=== PATIENT | female | born 1955 ===

== ENCOUNTER 2024-02-25 13:11 | Emergency (ER) | payer SELFPAY ==
[2024-02-25 15:10] VITALS: BP 159/68; PULSE 75; RESP 20; TEMP 36.6; O2SAT 96; BMI 34.8
--- NOTE | 2024-02-25 15:18 | ED_ITS ---
HPI - General Adult General Chief complaint: General Medical Stated complaint: medication Time Seen by Provider: 02/25/24 20:25 Source: patient Limitations: no limitations and other (poor historian) History of Present Illness ED Provider: Dana rudolph PA-C HPI narrative: 69-year-old female we will self report of ?psychiatric illness?, and diabetes, request seeking medication refills. Patient just moved from [place], she requires her medications. She can not tell me what medication she is on, when asked who her prescribers are, she does not know their names. Related Data Allergies Allergy/AdvReac Type Severity Reaction Status Date / Time aspirin [ASA] AdvReac Gastrointestinal Verified 02/25/24 15:14 Upset Review of Systems Review of Systems: Yes all other systems are reviewed and are negative Constitutional: Constitutional: Denies chills, Denies fatigue and Denies fever(s) Cardiovascular: Cardiovascular: Denies chest pain and Denies dyspnea Respiratory: Respiratory: Denies cough and Denies dyspnea Gastrointestinal: Gastrointestinal: Denies diarrhea, Denies nausea and Denies vomiting Endocrine: Endocrine: Denies fatigue [facility] Past Medical History Attestation statement: The following information was validated with the patient. Social History Social History Advance Directives: No Advance Directives Information Provided: No Physical Exam ED Vital Signs: Vital Signs - 24 hr 02/25/24 15:10 02/25/24 21:20 Temperature 97.8 F 97.8 F Pulse Rate 75 75 Respiratory Rate 20 20 Blood Pressure 159/68 H 159/68 H Pulse Oximetry 96 96 Oxygen Delivery Method Room Air Room Air BMI result Body Mass Index 34.8 Const Other: Awake, well-appearing Orientation/consciousness: oriented to person and oriented to place Resp Other: Nonlabored respiration Cardio Other: Normal peripheral perfusion Skin Other: Warm dry no rash Neuro Other: Can not give me the exact date General: oriented to person and oriented to place Psych Other: Somewhat hostile Course Course Course Narrative: RME: 69-year-old female presents for coughing and medication refill. Patient recently moved from [place]. Family member only showed picture of pills with n o names or boxes. SARs ordered Medical Decision Making Medical Decision Making MDM Narrative: 69-year-old female we will self report of ?psychiatric illness?, and diabetes, request seeking medication refills. Patient just moved from [place], she requires her medications. She can not tell me what medication she is on, when asked who her prescribers are, she does not know their names. Problem: Diabetes and ?psychiatric illness? History: Per patient I have considered the following differential diagnoses: Needs med refill Plan: I expressed to the patient that if she can not tell me what medication she is on, I can not refill them. She asks, ?I can give you a phone number and you can call my doctor?, I relayed to the patient that if she has the phone number, then she could call herself. The patient's son is here with her, he apparently brought in a photograph of all the pills, without the names. This is of no value. They can reach out to her prescribers. Lab Data Labs: Lab Results 02/25/24 Range/Units 15:37 Influenza Type A (PCR) NEGATIVE (Negative) Influenza Type B (PCR) NEGATIVE (Negative) RSV RNA Qual (PCR) NEGATIVE (Negative) SARS-CoV-2 RNA (RT-PCR) NEGATIVE (Negative) S. pyogenes GrpA CHAPITO Negative (Negative) Discharge Plan Discharge Clinical Impression: Medication refill Patient Disposition: Home, Self-Care Interventions: LWBS Worksheet Last Done: 02/25/24 14:50 ED Discharge Assessment Last Done: 02/25/24 21:20 Discharge Date/Time: 02/25/24 21:21 Print Language: Indonesian
[2024-02-25 15:58] LABS: IDNOW Serial# 08D9AD1C; Strep A Nucleic Acid Negative (Negative)
[2024-02-25 16:26] LABS: Influenza A PCR NEGATIVE (Negative); Influenza B PCR NEGATIVE (Negative); Resp Syncy Virus RNA Qual PCR NEGATIVE (Negative); SARS COV2 PCR INHOUSE NEGATIVE (Negative)
[2024-02-25 21:20] VITALS: BP 159/68; PULSE 75; RESP 20; TEMP 36.6; O2SAT 96
== END 2024-02-25 21:21 | disposition home or self-care (01) ==
PROVIDERS: Physician Assistant; Emergency Provider Emergency Medicine
DX: E11.8 Type 2 diabetes mellitus with unspecified complications (principal); F99 Mental disorder, not otherwise specified; Z03.818 Encounter for observation for suspected exposure to other biological agents ruled out
CPT/HCPCS: 0241U; 87651; 99282; 99283

== ENCOUNTER 2024-02-29 04:09 | Emergency (ER) | payer MEDICARE, SELFPAY ==
--- NOTE | 2024-02-29 | ECG_ITS ---
Test Reason : CEPEDAJ Blood Pressure : / mmHG Vent. Rate : 093 BPM Atrial Rate : 093 BPM P-R Int : 154 ms QRS Dur : 088 ms QT Int : 394 ms P-R-T Axes : 044 014 039 degrees QTc Int : 489 ms Normal sinus rhythm Normal ECG No previous ECGs available Referred By: Generic ED Physician Electronically Signed By:ALONDRA CRISTINA MD
[2024-02-29 04:16] VITALS: BP 178/79; PULSE 94; RESP 17; TEMP 35.9; O2SAT 100; BMI 36.0
[2024-02-29 04:33] LABS: Basophils Percent Auto 0.4 % (0-2); Eosinophils Absolute Auto 0.2 X10*3/uL (0.0-0.4); Eosinophils Percent Auto 2.6 % (0-4); Hematocrit 37.7 % (37.0-47.0); Hemoglobin 12.4 g/dl (12.0-16.0); Imm Gran Abs Auto 0.02 X10*3/uL (0.00-0.03); Imm Gran Pct Auto 0.2 % (0.0-0.4); Lymphocytes Percent Auto 36.4 % (20-40); MANUAL DIFF FLAG NO; Mean Corpuscular HGB Conc 32.9 g/dl (31.0-35.0); Mean Corpuscular Hemoglobin 27.2 pg (27.0-33.0); Mean Corpuscular Volume 82.7 fL (80.0-98.0); Mean Platelet Volume 9.2 fL (9.4-12.3); Monocytes Absolute Auto 0.8 X10*3/uL (0.1-1.2); Monocytes Percent Auto 9.1 % (2-11); Neutrophils Absolute Auto 4.2 x10*3/uL (2.0-8.3); Neutrophils Percent Auto 51.3 % (45-73); Platelet Count 218 X10*3/uL (160-400); Red Blood Count 4.56 X10*6/uL (4.20-5.50); Red Cell Distribution Width 14.1 % (11.0-16.0); White Blood Count 8.2 X10*3/uL (4.8-10.8)
[2024-02-29 04:49] LABS: Alanine Aminotransferase 24 U/L (0-31); Albumin Level 4.2 g/dL (3.5-5.0); Alkaline Phosphatase 49 U/L (39-117); Anion Gap 17 (12-20); Aspartate Amino Transferase 37 U/L (5-31); Bilirubin Total 0.4 mg/dL (0.0-1.0); Blood Urea Nitrogen 19 mg/dL (9-16); Calcium 9.2 mg/dL (8.4-10.2); Carbon Dioxide 24 mmol/L (22-29); Chloride 106 mmol/L (96-108); Creatinine Clr Calc Pharmacy 70.8; Estimated Glomerular Filt Rate > 60; Glucose Random 107 mg/dL (60-115); Potassium 3.5 mmol/L (3.3-5.1); Sodium 143 mmol/L (135-145); Total Protein 7.7 g/dL (6.5-8.0)
--- NOTE | 2024-02-29 05:52 | ED.GENADULT ---
HPI - General Adult General Chief complaint: General Medical Stated complaint: nosebleed Time Seen by Provider: 02/29/24 05:03 Source: patient and family (Son) Mode of arrival: ambulatory Limitations: no limitations History of Present Illness ED Provider: DR. Galloway HPI narrative: 69-year-old female came in for evaluation after she woke up with nose bleed, patient just moved from [facility] has no PCP currently, woke up this morning with a nosebleed, otherwise no headache, no blurry vision, patient is not taking anticoagulation medication, patient in the process of looking for PCP. Initially patient had severe nosebleed mostly from the right side, after 15 minute of externa nose pinching was applied the bleeding stopped. Patient now is requesting to be evaluated for rehab placement. Related Data Allergies Allergy/AdvReac Type Severity Reaction Status Date / Time aspirin [ASA] AdvReac Gastrointestinal Verified 02/29/24 04:19 Upset Review of Systems Review of Systems: All other systems are reviewed and are negative Constitutional: Reports as per HPI and Reports no additional constitutional complaints Eyes: Reports as per HPI and Reports no additional eye complaints Reports system reviewed and no additional complaints, except as documented Cardiovascular: Reports as per HPI and Reports no additional cardiovascular complaints Respiratory: Reports as per HPI and Reports no additional respiratory complaints Gastrointestinal: Reports as per HPI and Reports no additional gastrointestinal complaints Genitourinary: Reports no additional female genitourinary complaints Musculoskeletal: Reports no additional musculoskeletal complaints Skin/Breast: Reports system reviewed and no additional complaints, except as docu Psychiatric: Reports no additional psychiatric complaints Endocrine: Reports no additional endocrine complaints Hematologic/Lymphatic: Reports no additional hematologic/lymphatic complaints Allergic/Immunologic: Reports no additional allergic/immunologic complaints Reports system reviewed and no additional complaints, except as documented and Reports Abnormal speech present [facility] Social History Social History Advance Directives: No Advance Directives Information Provided: Yes Do you have a plan to hurt others: No Plan Physical Exam ED Vital Signs: Vital Signs - 24 hr 02/29/24 04:16 Temperature 96.6 F L Pulse Rate 94 Respiratory Rate 17 Blood Pressure 178/79 H Pulse Oximetry 100 Oxygen Delivery Method Room Air BMI result Body Mass Index 36.0 Vital signs have been reviewed and appear to be correct. Blood pressure elevated. Heart rate normal. Respiratory rate normal. Temperature normal. Oxygen saturation normal. Appearance: Alert. Oriented X3. No acute distress. Head: Normal external exam. Normocephalic. Atraumatic. No Lucio signs noted. No raccoon eyes noted Eyes: PERRLA. EOMI. Conjunctiva and sclera normal. Eyelids normal. ENT: TM's Normal. Pharynx normal. Uvula midline. Moist mucous membranes. No active bleeding after applying pressure. No trismus noted. No drooling noted. No muffled voice noted. Neck: Normal inspection. Neck supple. FROM. No adenopathy. Thyroid Normal. No meningeal signs. No neck mass noted. CVS: Normal heart rate and rhythm. Heart sound normal. No murmurs noted. Pulses normal throughout. Respiratory: No respiratory distress. Painless inspiration. Breath sounds normal. No wheezes/rales/rhonchi noted. Chest nontender. No accessory muscle usage noted or decreased air movement noted. Abdomen: Soft and nontender. Bowel sounds normal in all 4 quadrants. No distention noted. No organomegaly noted. No visible injury noted. Back: No CVA tenderness. Full range of motion noted. Skin: Skin warm and dry. Normal skin color. Normal skin turgor. No rashes/lesions/lacerations noted. Extremities: No lower extremity edema. Extremities exhibit normal range of motion. Extremities nontender. Neuro: Oriented X 3. Cranial nerve exam: II-XII are grossly intact No motor deficit. No sensory deficit. Reflexes normal. Course Reevaluation(s) Reevaluation #1: Nose bleeding stopped after external nasal pressure otherwise stable labs, will start physician observation as per patient request asking for physical rehabilitation placement. Time: 05:56 Medical Decision Making Differential Diagnosis Differential Diagnoses: The differential diagnosis associated with the presentation includes (Severe anemia, thrombocytopenia, electrolyte derangement, anterior epistaxis, posterior epistaxis.) Admission/Observation Consideration of admission/observation: Escalation of care including admission/observation considered Lab Data MDM Lab Attestation statement: I reviewed the patient's lab results. 02/29/24 04:28 02/29/24 04:28 Labs: Lab Results 02/29/24 Range/Units 04:28 WBC 8.2 (4.8-10.8) X10*3/uL RBC 4.56 (4.20-5.50) X10*6/uL Hgb 12.4 (12.0-16.0) g/dl Hct 37.7 (37.0-47.0) % MCV 82.7 (80.0-98.0) fL MCH 27.2 (27.0-33.0) pg MCHC 32.9 (31.0-35.0) g/dl RDW 14.1 (11.0-16.0) % Plt Count 218 (160-400) X10*3/uL MPV 9.2 L (9.4-12.3) fL Immature Gran % (Auto) 0.2 (0.0-0.4) % Neut % (Auto) 51.3 (45-73) % Lymph % (Auto) 36.4 (20-40) % Hoke % (Auto) 9.1 (2-11) % Eos % (Auto) 2.6 (0-4) % Baso % (Auto) 0.4 (0-2) % Lymph # (Auto) 3.0 (1.2-4.9) X10*3/uL Hoke # (Auto) 0.8 (0.1-1.2) X10*3/uL Eos # (Auto) 0.2 (0.0-0.4) X10*3/uL Baso # (Auto) 0.0 (0.0-0.2) X10*3/uL Abs Immat Gran (auto) 0.02 (0.00-0.03) X10*3/uL Absolute Neuts (auto) 4.2 (2.0-8.3) x10*3/uL Absolute Nucleated RBC 0.000 (0.0-0.012) X10*3/uL Nucleated RBC % (auto) 0.0 (0.0-0.2) /100WBC Sodium 143 (135-145) mmol/L Potassium 3.5 (3.3-5.1) mmol/L Chloride 106 (96-108) mmol/L Carbon Dioxide 24 (22-29) mmol/L Anion Gap 17 (12-20) BUN 19 H (9-16) mg/dL Creatinine 0.83 (0.5-1.4) mg/dL Estim Creat Clear Calc 70.8 Estimated GFR > 60 Random Glucose 107 (60-115) mg/dL Calcium 9.2 (8.4-10.2) mg/dL Total Bilirubin 0.4 (0.0-1.0) mg/dL AST 37 H (5-31) U/L ALT 24 (0-31) U/L Alkaline Phosphatase 49 (39-117) U/L Total Protein 7.7 (6.5-8.0) g/dL Albumin 4.2 (3.5-5.0) g/dL Blood Type Cancelled Antibody Screen Cancelled Discharge Plan Discharge Clinical Impression: Epistaxis Patient Disposition: Still a Patient Print Language: Macedonian
--- NOTE | 2024-02-29 06:08 | MHC.EDTECH ---
between the times of 0500 and 0530, this tech completed a type and screen on this pt. Sometime after sending the specimen t the lab the blood bank called and reported that the type and screen was done incorrectly, this tech then preceded to remove the original type and screen bracelet before the blood bank then confirmed that the band and specimen was okay to use. The band was secured on the pt per blood bank stating it was correct.
[2024-02-29 06:13] VITALS: BP 175/77; PULSE 84; RESP 17; TEMP 36; O2SAT 96
[2024-02-29 07:41] VITALS: BP 175/77; PULSE 84; O2SAT 96
[2024-02-29 08:14] VITALS: BP 161/61; PULSE 86; RESP 20; TEMP 36.9; O2SAT 98
[2024-02-29 08:23] LABS: Glucose, Whole Blood 138 mg/dL (60-115)
--- NOTE | 2024-02-29 08:59 | PC.NURSE ---
This RN went into patient room as son was upset that no care has been provided. This RN provided emotional support, explained that she came in with a nose bleed, we controlled her nose bleed of which has not returned. Pt son expressed concerns for wanting to get pt placed in rehab. He had removed her from an assisted living in [place]. Pt saw PT this morning, This RN placed medrec in computer as he states he has none of her medications at home, diet order placed as well. CM currently at bedside
--- NOTE | 2024-02-29 09:09 | MHC.CM.ED ---
Addendum entered by Kellie Linares 02/29/24 09:16: Attempted to reach out to Shanae at [facility] via telephone at [phone]. Left message requesting return telephone call. Original Note: Received case management this morning from Dr Galloway. Patient came to the ER due to nosebleed. Patient and son requesting rehab. Physical therapy eval completed. Home with services are recommended. Met with patient and food bagging machine operator in regards to discharge planning. Patient was residing at [facility] in [place], [place] until Friday 02/23, when patient's son, John, brought her to [place]. Patient does not know what her insurance is. Patient does not have [facility]. Patient does not have a PCP. T/W explained STR and home services are unable to be arranged at this time because patient does not have a PCP or [facility]. [facility] information provided. Patient encouraged to reach out to them to complete MH bere and find PCP. Patient's son, John, will return to ER. T/W will explain this info to him. Continue to monitor for d/c needs.
--- NOTE | 2024-02-29 10:29 | PC.NURSE ---
Son back at bedside, CM made aware so that she can go back in to discuss patient plan of care.
--- NOTE | 2024-02-29 11:03 | MHC.CM.ED ---
Met with patient and son, John in regards to discharge planning. Information on [facility] financial counselors provided. John will transport patient home. Patient, John, Marilee HESTER and Shanna STEVENSON aware. Continue to monitor for d/c needs.
[2024-02-29 12:16] VITALS: BP 142/70; PULSE 85; RESP 18; TEMP 37; O2SAT 98
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
== END 2024-02-29 12:18 | disposition home or self-care (01) ==
PROVIDERS: Emergency Provider Emergency Medicine
DX: R04.0 Epistaxis (principal); R73.9 Hyperglycemia, unspecified
CPT/HCPCS: 36415; 80053; 82947; 85025; 86850; 86900; 86901; 93005; 97161; 99284

== ENCOUNTER → 2024-02-29 04:22 | Outpatient (BNV) | payer SELFPAY | PROVIDERS: Emergency Provider Emergency Medicine; Visit Provider Internal Medicine Cardiovascular Disease | DX: D50.0 Iron deficiency anemia secondary to blood loss (chronic) (principal); R04.0 Epistaxis | CPT/HCPCS: 93010 ==